=== PATIENT | male | born 1985 | race Caucasian/White ===

== ENCOUNTER 2017-10-20 05:44 | Emergency (ER) | payer SELFPAY ==
[~2017-10-20] VITALS: Ht 170.2 cm; Wt 88.5 kg
--- NOTE | 2017-10-20 05:55 | NUR ---
BIBSELGibran C/O "UNABLE TO SLEEP 4 DAYS AFTER STOPPING MEDS CLONIDINE BACLOFEN, GABAPENTIN, HYDROXYZINE D/T RUNNING OUT." PATIENT IS AAOX3, NAD NOTED. VSS. SKIN WARM AND DRY. AMBULATORY.
[2017-10-20] MEDS ORDERED: LORAZEPAM 1 MG TABLET PO ONE (06:30)
[2017-10-20] MEDS ORDERED: MAG HYDROX/AL HYDROX/SIMETH 30 ML UDC PO ONE (09:00)
[2017-10-20] MEDS ORDERED: ONDANSETRON 4 MG TAB.RAPDIS PO ONE (09:00)
[2017-10-20] MEDS ORDERED: FAMOTIDINE (20 MG) 20 MG TABLET PO ONE (09:00)
--- NOTE | 2017-10-20 09:01 | NUR ---
VERBAL ORDER DR WALTERS MAALOX 30 MG , ZOFRAN 4 MG , PEPCID 20 MG X1 PO FOR ABD CRAMPING/EPIGASTRIC PAIN
[2017-10-20] MEDS ORDERED: MAG HYDROX/AL HYDROX/SIMETH 30 ML UDC ONE (09:03)
[2017-10-20] MEDS ORDERED: FAMOTIDINE (20 MG) 20 MG TABLET ONE (09:03)
[2017-10-20] MEDS ORDERED: ONDANSETRON 4 MG TAB.RAPDIS ONE (09:03)
--- NOTE | 2017-10-20 09:10 | NUR ---
CALLED FOR FOOD TRAY
--- NOTE | 2017-10-20 10:51 | NUR ---
Patient discharged to home in stable condition. Written and verbal after care instructions given. Patient verbalizes understanding of instruction.
[2017-10-20 10:52] VITALS: BP 120/77
--- NOTE | 2017-10-20 11:00 | NUR ---
PT. VERBALIZED UNDERSTANDING OF AFTERCARE INSTRUCTIONS.Patient discharged to home in stable condition. Written and verbal after care instructions given. Patient verbalizes understanding of instruction.
== END 2017-10-20 11:00 | disposition home or self-care (01) ==
LOC: ER 05:48
DX: R00.2 Palpitations (principal); F41.9 Anxiety disorder, unspecified; R10.9 Unspecified abdominal pain; F32.9 Major depressive disorder, single episode, unspecified; G47.00 Insomnia, unspecified; I10 Essential (primary) hypertension; F17.200 Nicotine dependence, unspecified, uncomplicated
CPT/HCPCS: 99284; 99406; A4606; Q0162; Z7610